=== PATIENT | male | born 1995 | race Caucasian/White ===

== ENCOUNTER 2021-11-11 10:13 | Emergency (ER) | payer OTHER, SELFPAY ==
--- NOTE | 2021-11-11 10:46 | ED.URI ---
HPI - URI/Sore Throat General Chief Complaint: General Medical Stated Complaint: sore throat Time Seen by Provider: 11/11/21 10:24 Source: patient Mode of arrival: ambulatory Limitations: no limitations History of Present Illness MD elicited complaint: sore throat Onset (ago): day(s) (yesterday but much worse overnight) Consistency: progressively worsening Severity: moderate Description of mucous: clear Able to tolerate fluids by mouth: Yes Exacerbating factors: swallowing Relieving factors: nothing Associated symptoms: sore throat Treatments prior to arrival: cold medicine Related Data Previous Rx's Medication Instructions Recorded amoxicillin 500 mg capsule 500 mg PO BID 10 Days #20 cap 11/11/21 Allergies Allergy/AdvReac Type Severity Reaction Status Date / Time No Known Allergies Allergy Unverified 04/05/20 19:09 [No Known Allergies*] Review of Systems Review of Systems: Constitutional : no Fever, no Chills, no fatigue, no Malaise ENT/Mouth : positive sore throat, no runny nose Eyes: No Discharge Cardiovascular : No Chest Pain, No SOB Respiratory : No Cough, No Sputum Gastrointestinal : No Nausea, No Vomiting, No Diarrhea Genitourinary : No Dysuria, No Urinary Frequency Musculoskeletal : no Myalgia Skin : No rash Neuro : No Headache PMFSH Past Medical History Attestation statement: The following information was validated with the patient. Medical History No known health problems Social History Social History (Updated 11/11/21 @ 10:55 by Mel Jett DO) Patient Tobacco Use Status: Former Tobacco user Advance Directives: Yes Advance Directives Information Provided: Yes Advance Directives on File: No Physical Exam Vital Signs: Vital Signs: Last Vital Signs Temp 98.0 F 11/11/21 10:48 Pulse 84 11/11/21 10:48 Resp 18 11/11/21 10:48 BP 135/63 11/11/21 10:48 Pulse Ox 97 11/11/21 10:48 BMI result Body Mass Index 29.0 Appearance: Alert. Oriented X3. No acute distress. Eyes: Pupils equal, round and reactive to light. ENT: Pharynx moderate swelling and erythema with white patches uvula is midline no drooling, tolerating secretions, normal voice Neck: Normal inspection. Neck supple. CVS: Normal heart rate and rhythm. Pulses normal. Respiratory: No respiratory distress. Breath sounds normal. Abdomen: Soft and non-tender. Skin: Skin warm and dry. Normal skin color. Extremities: No lower extremity edema. Neuro: Oriented X 3. No motor deficit. No sensory deficit. Course Course Course Narrative: strep positive will start on amoxicilin no signs of [employer] on exam at this time MDM - URI/Sore Throat MDM Narrative Medical decision making narrative: 26 yo male with sore throat - otherwise healthy here with white patches on throat he is able to swallow he has no drooling. will test for covid/flu and strep - anticipate supportive care with steroids and motrin. Dispo per results and findings. Lab Data Labs: Lab Results 11/11/21 11/11/21 11/11/21 Range/Units 10:35 10:35 11:07 COVID-19 (KATHRYN) Negative (Negative) COVID-19 Clin Com See Note Influenza Type A (AMANDA) Negative (Negative) Influenza Type B (AMANDA) Negative (Negative) Influenza A & B Note See Note S. pyogenes GrpA AMANDA Positive A (Negative) Discharge Plan Discharge Clinical Impression: Pharyngitis due to Streptococcus pyogenes Patient Disposition: Home, Self-Care Instructions: Pharyngitis (ED), Strep Throat (ED) Additional Instructions: return to ED for any worsening symptoms or concerns return if symptoms worsen or do not improve COVID and FLU negative Prescriptions: New amoxicillin 500 mg capsule 500 mg PO BID 10 Days Qty: 20 0RF Stand Alone Forms: Work/School Release
[2021-11-11 10:48] VITALS: BP 135/63; PULSE 84; RESP 18; TEMP 36.7; O2SAT 97; BMI 29.0
[2021-11-11 10:55] LABS: Strep A Nucleic Acid Positive (Negative)
--- NOTE | 2021-11-11 10:58 | PC.NURSE ---
REDNESS AND WHITE SPOTS NOTED TO BACK OF THROAT ON EXAMINATION. NO DIFF BREATHING, ABLE TO SWALLOW BUT WITH PAIN.
[2021-11-11] MEDS: dexAMETHasone sod phosphate 10 MG/ML VIAL IVPUSH (11:03)
[2021-11-11] MEDS: Ibuprofen Oral Susp 200 MG/10 ML ORAL.SUSP 600 MG PO (11:03)
[2021-11-11] MEDS: Amoxicillin 500 MG CAPSULE PO (11:04)
[2021-11-11 11:07] LABS: IDNOW Serial# 08D9AD1C; Influenza A Negative (Negative); Influenza B2 Negative (Negative)
[2021-11-11 11:28] LABS: COVID-19 Test Negative (Negative); IDNOW Serial# 16C4AD1C
== END 2021-11-11 11:39 | disposition home or self-care (01) ==
PROVIDERS: Emergency Provider Emergency Medicine
DX: J02.0 Streptococcal pharyngitis (principal); Z87.891 Personal history of nicotine dependence; Z20.822 Contact with and (suspected) exposure to COVID-19
CPT/HCPCS: 87502; 87635; 87651; 96374; 99283; 99284; J1100